=== PATIENT | male | born 1955 | race Caucasian/White ===

== ENCOUNTER 2018-10-05 21:20 | Inpatient (IN) | payer BC, MEDICARE ==
[~2018-10-05] VITALS: Ht 177.8 cm; Wt 63.7 kg
[~2018-10-05 21:20] MED LIST: OMNIPAQUE 350 MG/ML, 100ML BOTTLE ONE
[2018-10-05] MEDS ORDERED: MORPHINE SULFATE 4 MG/ML, 1ML ONE ×2 (21:51→23:19)
[2018-10-05] MEDS ORDERED: ONDANSETRON 2MG/ML, 2ML ONE ×2 (21:51→23:19)
[2018-10-05] MEDS ORDERED: ONDANSETRON 2MG/ML, 2ML IVPush ONE ×2 (22:00→23:30)
--- NOTE | 2018-10-05 22:00 | NUR ---
FIRST CONTACT WITH PT. PT HAS HX OF DIVERTICULITIS. LLQ ABD PAIN AND SUBJECTIVE FEVERS STARTING TODAY. 1 EPISODE VOMITING TODAY. PT'S AOX4. RESPS EVEN AND UNLABORED. ALL MONITORS IN PLACE. CLAL LIGHT WITHIN REACH. EDMD AT BEDSIDE TO ASSESS AT THIS TIME.
[2018-10-05] MEDS: MORPHINE SULFATE 4 MG/ML, 1ML IVPush PRN ×2 (22:02→23:27)
--- NOTE | 2018-10-05 22:04 | NUR ---
PT AMB TO BR AND BACK TO ROOM WITH STEADY GAIT. UA SENT.
--- NOTE | 2018-10-05 22:07 | NUR ---
PT MEDICATED PER EMAR. PT TOLERATED WELL.
[2018-10-05 22:13] LABS: BASOPHILS % (AUTO) 0 % (0-1); EOSINOPHILS # (AUTO) 0.11 x10^3/uL (0-0.4); EOSINOPHILS % (AUTO) 2 % (1-7); LYMPHOCYTES # (AUTO) 1.28 x10^3/uL (1-3.4); LYMPHOCYTES % (AUTO) 17 % (22-44); MD NO; MEAN CORPUSCULAR HEMOGLOBIN 30.9 pg (27.5-34.5); MEAN CORPUSCULAR HGB CONC 33.3 g/dL (33.2-36.2); MEAN CORPUSCULAR VOLUME 92.9 fL (81-97); MONOCYTES # (AUTO) 0.81 x10^3/uL (0.2-0.8); MONOCYTES % (AUTO) 11 % (2-9); NEUTROPHILS # (AUTO) 5.26 x10^3/uL (1.8-6.8); NEUTROPHILS % (AUTO) 71 % (42-75); PLATELET COUNT 251 x10^3/uL (130-400); RED BLOOD COUNT 4.16 x10^6/uL (4.38-5.82); RED CELL DISTRIBUTION WIDTH 13.6 % (9.4-14.8)
[2018-10-05 22:15] LABS: MICROSCOPIC AUTO
[2018-10-05 22:17] LABS: CULTURE INDICATED? YES
[2018-10-05 22:25] LABS: ALANINE AMINOTRANSFERASE 33 U/L (12-78); ALBUMIN 3.6 g/dL (3.4-5.0); ANION GAP 6 mmol/L (5-15); CALCIUM 8.7 mg/dL (8.5-10.1); CHLORIDE 106 mmol/L (98-107); CREATININE 0.67 mg/dL (0.7-1.3)
[2018-10-05 22:27] LABS: ALKALINE PHOSPHATASE 66 U/L (45-117); BILIRUBIN,TOTAL 0.4 mg/dL (0.2-1.0); TOTAL PROTEIN 7.3 g/dL (6.4-8.2)
--- NOTE | 2018-10-05 22:42 | NUR ---
PT IN CT NOW.
[2018-10-05] MEDS ORDERED: CIPROFLOXACIN 500 MG TABLET ONE (23:19)
[2018-10-05] MEDS ORDERED: METRONIDAZOLE PMX 500MG/100ML 100 ML ONE (23:19)
[2018-10-05] MEDS ORDERED: METRONIDAZOLE PMX 500MG/100ML 100 ML IV ONE (23:30)
[2018-10-05] MEDS ORDERED: MORPHINE SULFATE 4 MG/ML, 1ML IVPush PRN (23:30)
[2018-10-05] MEDS ORDERED: CIPROFLOXACIN 500 MG TABLET PO ONE (23:30)
[2018-10-05] MEDS ORDERED: LORA10TA62 PO (23:37)
[2018-10-05] MEDS ORDERED: ALBU0.63 NEB (23:37)
[2018-10-05] MEDS ORDERED: IPRA3AMP30 INH (23:38)
[2018-10-05] MEDS ORDERED: FURO20TA3 PO (23:39)
[2018-10-05] MEDS ORDERED: ASPI-496 PO (23:40)
[2018-10-05] MEDS ORDERED: MONT10TA9 PO (23:40)
[2018-10-05] MEDS ORDERED: MOME13HF INH (23:40)
[2018-10-05] MEDS ORDERED: ROSU5TAB PO (23:41)
[2018-10-05] MEDS ORDERED: ALPR0.257 SL (23:41)
--- NOTE | 2018-10-05 23:45 | NUR ---
PT MEDICATED PER EMAR. PT TOLERATED WELL. PT'S AOX4. RESPS EVEN AND UNLABORED.
--- NOTE | 2018-10-05 23:57 | NUR ---
REPORT GIVEN TO ANASTASIIA VERMA. ALL QUESTIONS ANSWERED.
[2018-10-06 00:42] VITALS: BP 95/65
[2018-10-06] MEDS ORDERED: LIDODERM 5% PATCH TD PRN (01:00)
[2018-10-06] MEDS ORDERED: morphine SULFATE 10 MG/ML, 1ML IVPush PRN (01:00)
[2018-10-06] MEDS ORDERED: hydrALAzine 20 MG/ML, 1ML IVPush PRN (01:00)
[2018-10-06] MEDS ORDERED: BISACODYL 10 MG SUPP PR PRN (01:00)
[2018-10-06] MEDS ORDERED: TEMPLATE NON-FORMULARY MED. (Albuterol Sulfate (Albuterol Sulfate**) 1 VIAL) NEB PRN (01:00)
[2018-10-06 01:06] VITALS: BP 95/65
[2018-10-06] MEDS: D5%-0.45% NACL 1,000 ML IV SCH ×3 (01:24→16:37)
[2018-10-06] MEDS: ONDANSETRON 2MG/ML, 2ML IVPush PRN ×2 (01:24→16:41)
[2018-10-06] MEDS: ALBUTEROL SULFATE 2.5 MG/3 ML NPPB SCH ×4 (06:50→20:56)
[2018-10-06] MEDS: BUDESONIDE 0.5 MG/2 ML INHA NPPB SCH ×2 (06:50→20:56)
[2018-10-06] MEDS ORDERED: METRONIDAZOLE PMX 500MG/100ML 100 ML IV SCH (07:00)
[2018-10-06 08:36] VITALS: BP 114/76
[2018-10-06] MEDS: LORATADINE 10 MG TABLET PO SCH (08:47)
[2018-10-06] MEDS: ASPIRIN 81 MG TABLET EC PO SCH (08:47)
[2018-10-06] MEDS ORDERED: ACETAMINOPHEN 325 MG TABLET ONE (08:53)
[2018-10-06] MEDS: ACETAMINOPHEN 325 MG TABLET PO PRN ×2 (08:54→16:43)
[2018-10-06] MEDS ORDERED: FUROSEMIDE 20 MG TABLET PO SCH (09:00)
[2018-10-06] MEDS ORDERED: CIPROFLOXACIN/PMX 400MG/200ML 200 ML IV SCH (11:00)
[2018-10-06] MEDS: PIPERACILLIN/TAZO/PMX 3.375GM 50 ML IV SCH ×2 (13:32→19:45)
[2018-10-06 14:12] VITALS: BP 96/61
[2018-10-06] MEDS: MONTELUKAST 10 MG TABLET PO SCH (16:36)
[2018-10-06 19:00] VITALS: BP 115/79
[2018-10-06] MEDS ORDERED: ATORVASTATIN 10 MG TABLET PO SCH (21:00)
[2018-10-07] MEDS: D5%-0.45% NACL 1,000 ML IV SCH ×2 (01:01→10:00)
[2018-10-07] MEDS: ONDANSETRON 2MG/ML, 2ML IVPush PRN ×2 (01:06→07:56)
[2018-10-07] MEDS: PIPERACILLIN/TAZO/PMX 3.375GM 50 ML IV SCH ×2 (01:07→07:54)
[2018-10-07 01:34] VITALS: BP 111/69
[2018-10-07 05:44] LABS: MEAN CORPUSCULAR HEMOGLOBIN 31.2 pg (27.5-34.5); MEAN CORPUSCULAR HGB CONC 33.7 g/dL (33.2-36.2); MEAN CORPUSCULAR VOLUME 92.7 fL (81-97); PLATELET COUNT 213 x10^3/uL (130-400); RED BLOOD COUNT 3.65 x10^6/uL (4.38-5.82); RED CELL DISTRIBUTION WIDTH 13.6 % (9.4-14.8)
[2018-10-07 05:54] LABS: ANION GAP 2 mmol/L (5-15); CALCIUM 8.3 mg/dL (8.5-10.1); CHLORIDE 112 mmol/L (98-107)
[2018-10-07 05:55] LABS: CREATININE 0.67 mg/dL (0.7-1.3)
[2018-10-07 06:37] LABS: BASOPHILS # (AUTO) 0.03 x10^3/uL (0-0.1); BASOPHILS % (AUTO) 1 % (0-1); EOSINOPHILS # (AUTO) 0.07 x10^3/uL (0-0.4); EOSINOPHILS % (AUTO) 2 % (1-7); LYMPHOCYTES # (AUTO) 0.59 x10^3/uL (1-3.4); LYMPHOCYTES % (AUTO) 17 % (22-44); MD SCAN; MONOCYTES % (AUTO) 14 % (2-9); NEUTROPHILS # (AUTO) 2.35 x10^3/uL (1.8-6.8); NEUTROPHILS % (AUTO) 66 % (42-75)
[2018-10-07] MEDS: ALBUTEROL SULFATE 2.5 MG/3 ML NPPB SCH ×2 (07:00→11:28)
[2018-10-07] MEDS: BUDESONIDE 0.5 MG/2 ML INHA NPPB SCH (07:10)
[2018-10-07] MEDS: LORATADINE 10 MG TABLET PO SCH (07:54)
[2018-10-07] MEDS: ASPIRIN 81 MG TABLET EC PO SCH (07:54)
[2018-10-07] MEDS: MONTELUKAST 10 MG TABLET PO SCH (07:54)
[2018-10-07 08:01] VITALS: BP 118/71
[2018-10-07] MEDS ORDERED: AMOX1TAB64 PO (10:52)
[2018-10-07] MEDS ORDERED: LACT1CAP35 PO (10:52)
== END 2018-10-07 11:55 | disposition home or self-care (01) | DRG 392 ==
LOC: ED 22:00 → EDIP 23:10 → 4NOR 10-06 00:08
PROVIDERS: ADMIT Family Medicine; ATTEND Family Medicine
DX: K57.32 Diverticulitis of large intestine without perforation or abscess without bleeding (principal); J96.10 Chronic respiratory failure, unspecified whether with hypoxia or hypercapnia; J43.9 Emphysema, unspecified; E87.6 Hypokalemia; E78.5 Hyperlipidemia, unspecified; Z81.1 Family history of alcohol abuse and dependence; Z87.891 Personal history of nicotine dependence; Z96.659 Presence of unspecified artificial knee joint; Z99.81 Dependence on supplemental oxygen; K40.90 Unilateral inguinal hernia, without obstruction or gangrene, not specified as recurrent; D64.9 Anemia, unspecified; M19.90 Unspecified osteoarthritis, unspecified site
CPT/HCPCS: 36415; 99285; J7613; J7626; 74177; 80048; 80053; 81001; 83605; 83690; 85025; 87040; 87086; 94640; 96374; 96375; G0378; J2405; J2543; Q9967